=== PATIENT | male | born 1985 | race African-American/Black ===

== ENCOUNTER 2020-04-16 01:59 | Emergency (ER) | payer SELFPAY ==
--- NOTE | 2020-04-16 02:36 | ER ---
Nurse's Notes [facility] Name: Ritchie Gonzalez Age: 35 yrs Sex: Male : 1985 Arrival Date: 04/16/2020 Time: 02:03 Bed 13 Private MD: Diagnosis: Dental caries, unspecified;Cracked tooth Presentation: 04/16 02:17 Chief complaint: Patient states: TOOTHACHE STARTED OVER THE WEEKEND, MADE APPOINTMENT rv WITH THE DENTIST, BUT PAIN IS GETTING WORSE. WITH HEADACHE, NUMBNESS ON THE RIGHT SIDE OF THE FACE. DENIES FEVER. Coronavirus screen: Client denies travel out of the [place] in the last 14 days. Coronavirus screen: At this time, the client does not indicate any symptoms associated with coronavirus-19. Ebola Screen: No symptoms or risks identified at this time. Initial Sepsis Screen: Does the patient meet any 2 criteria? No. Patient's initial sepsis screen is negative. Does the patient have a suspected source of infection? No. Patient's initial sepsis screen is negative. Risk Assessment: Do you want to hurt yourself or someone else? Patient reports no desire to harm self or others. Onset of symptoms was April 15, 2020. 02:17 Method Of Arrival: Ambulatory rv 02:17 Acuity: JOYCE 3 rv Triage Assessment: 02:20 General: Appears uncomfortable, Behavior is calm, cooperative. Pain: Complains of pain rv in right jaw. EENT: Reports pain in lower right second bicuspid, lower right first molar and lower right second molar. Historical: - Allergies: 02:20 No Known Allergies; rv - Home Meds: 02:20 None [Active]; rv - PMHx: 02:20 None; rv - PSHx: 02:20 None; rv - Immunization history:: Adult Immunizations up to date. - Social history:: Smoking status: Patient reports the use of cigarette tobacco products, cigars. Screenin:33 Abuse screen: Denies threats or abuse. Nutritional screening: No deficits noted. fu Tuberculosis screening: No symptoms or risk factors identified. Fall Risk None identified. Assessment: 02:22 General: Appears in no apparent distress. Behavior is calm, cooperative, appropriate fu for age, Denies fever, feeling ill, fatigue, chills. Pain: Complains of pain in right lower jaw Pain does not radiate. Pain currently is 10 out of 10 on a pain scale. Pain began 5 days ago. Neuro: Level of Consciousness is awake, alert, obeys commands, Oriented to person, place, time, situation, Toolroom Attendant are equal bilaterally Moves all extremities. Gait is steady, Speech is normal, Facial symmetry appears normal. Cardiovascular: Denies chest pain. Respiratory: Respiratory effort is even, unlabored, Respiratory pattern is regular. GI: No signs and/or symptoms were reported involving the gastrointestinal system. Derm: mild swelling of the right side of the face. Vital Signs: 02:17 Temp 99.4(TE); Weight 92.99 kg; Height 5 ft. 8 in. (172.72 cm); rv 02:19 BP 132 / 96; Pulse 80; Resp 16; Temp 99.4(TE); Pulse Ox 98% on R/A; Pain 10/10; fu 02:43 BP 125 / 88; Pulse 70; Resp 16; Pulse Ox 99% on R/A; fu 02:17 Body Mass Index 31.17 (92.99 kg, 172.72 cm) rv ED Course: 02:03 Patient arrived in ED. cl3 02:17 Christian Mason MD is Attending Physician. tw4 02:20 Triage completed. rv 02:21 Arm band placed on right wrist. Patient placed in the treatment room, on a stretcher, rv Patient notified of wait time. 02:22 Alberto Birmingham, RN is Primary Nurse. fu 02:34 Patient has correct armband on for positive identification. Bed in low position. Call fu light in reach. Pulse ox on. NIBP on. 02:46 No provider procedures requiring assistance completed. Patient did not have IV access fu during this emergency room visit. Administered Medications: 02:33 Drug: Amoxicillin 875 mg Route: PO; fu 02:46 Follow up: Response: No adverse reaction fu 02:37 Not Given (Physician Discretion): Ibuprofen 800 mg PO once tw4 02:43 Drug: Keota 5 mg-325 mg 1 tabs Route: PO; fu 02:46 Follow up: Response: Medication administered at discharge. fu Outcome: 02:36 Discharge ordered by . tw4 02:47 Discharged to home ambulatory. fu 02:47 Condition: stable 02:47 Discharge instructions given to patient, family, Instructed on discharge instructions, follow up and referral plans. Demonstrated understanding of instructions, follow-up care, Prescriptions given X 2. 02:47 Patient left the ED. fu Signatures: Alberto Birmingham, RN Christian Garza MD MD tw4 Mark Garcia RN Kristie Ramos cl3
--- NOTE | 2020-04-16 02:36 | EDPHYS ---
Physician Documentation [facility] Name: Ritchie Gonzalez Age: 35 yrs Sex: Male : 1985 Arrival Date: 04/16/2020 Time: 02:03 Bed 13 Private MD: ED Physician Christian Mason Historical: - Allergies: 04/16 02:20 No Known Allergies; rv - Home Meds: 02:20 None [Active]; rv - PMHx: 02:20 None; rv - PSHx: 02:20 None; rv - Immunization history:: Adult Immunizations up to date. - Social history:: Smoking status: Patient reports the use of cigarette tobacco products, cigars. Vital Signs: 02:17 Temp 99.4(TE); Weight 92.99 kg; Height 5 ft. 8 in. (172.72 cm); rv 02:19 BP 132 / 96; Pulse 80; Resp 16; Temp 99.4(TE); Pulse Ox 98% on R/A; Pain 10/10; fu 02:43 BP 125 / 88; Pulse 70; Resp 16; Pulse Ox 99% on R/A; fu 02:17 Body Mass Index 31.17 (92.99 kg, 172.72 cm) rv MDM: 02:18 Patient medically screened. tw4 Administered Medications: 02:33 Drug: Amoxicillin 875 mg Route: PO; fu 02:46 Follow up: Response: No adverse reaction fu 02:37 Not Given (Physician Discretion): Ibuprofen 800 mg PO once tw4 02:43 Drug: Coy 5 mg-325 mg 1 tabs Route: PO; fu 02:46 Follow up: Response: Medication administered at discharge. fu Disposition: 04/16/20 02:36 Discharged to Home. Impression: Dental caries, unspecified, Cracked tooth. - Condition is Stable. - Prescriptions for Augmentin 875- 125 mg Oral Tablet - take 1 tablet by ORAL route every 12 hours for 10 days; 20 tablet. Tramadol 50 mg Oral Tablet - take 1 tablet by ORAL route every 8 hours as needed; 12 tablet. - Medication Reconciliation Form, Thank You Letter, Antibiotic Education, Prescription Opioid Use form. - Follow up: Private Physician; When: Upon discharge from the Emergency Department; Reason: Recheck today's complaints, Continuance of care, Re-evaluation by your physician. - Problem is new. - Symptoms have improved. Addendum: 04/27/2020 06:59 Addendum: HPI: Pt is a 35 year old male that comes to the ED with complaint of t w4 toothache. pt states that pain has been present for two days. Pt states that his jaw is becoming swollen. P t denies any difficulty swallowing or handling secretions. Denies fever, chills or neck pain. Addendum: ROS: Constitutional: negative for fevers chills, HEENT: positive for toothache, jaw swelling Neck, negative for pain ,sore throat Resp: negative for SOB cough ROMERO CV: negative for C: ROMERO, palpitations Abdomen: negative for abdominal pain, nausea, vomiting diarrhea Ext: negative for edema, injury deformtoy. Addendum: PE: General: well develop well nourished male in NAD HEENT: atraumatic, nontraumatic PERRLA , EOMI mouth poor dentition , dental caries left lower molars, no abscess, oropharynx patent and normal Neck: supple, nontender, no lymphadenopathy . Signatures: Alberto Birmingham, RN RN Christian Stahl MD MD tw4 Mark Garcia RN RN rv Corrections: (The following items were deleted from the chart) 04/16 02:47 02:36 04/16/2020 02:36 Discharged to Home. Impression: Dental caries, unspecified; fu Cracked tooth. Condition is Stable. Forms are Medication Reconciliation Form, Thank You Letter, Antibiotic Education, Prescription Opioid Use. Follow up: Private Physician; When: Upon discharge from the Emergency Department; Reason: Recheck today's complaints, Continuance of care, Re-evaluation by your physician. Problem is new. Symptoms have improved. tw4
[2020-04-16] MEDS ORDERED: IBUPROFEN 400 MG TAB ONE (02:40)
[2020-04-16] MEDS ORDERED: AMOX/K CLAV 875 MG TAB ONE (02:40)
[2020-04-16] MEDS ORDERED: HYDROCODONE/APAP 5/325 MG TAB ONE (02:53)
[2020-04-16 05:49] VITALS: TEMP 99.4
[2020-04-16 05:53] VITALS: BP 125/88; O2SAT 99
== END 2020-04-16 02:47 | disposition home or self-care (01) ==
LOC: ER 01:59
DX: K03.81 Cracked tooth (principal); F17.290 Nicotine dependence, other tobacco product, uncomplicated
CPT/HCPCS: 99283

== ENCOUNTER 2023-10-18 09:29 | Emergency (ER) | payer BC ==
--- OUTSIDE RECORDS SUMMARY | 2023-10-18 09:31 | XMS REPORT | Continuity of Care Document ---
Author Name Unknown Address [address] [facility] [place] [address] [facility] Address [address] [facility] [place] [address] Care Team Providers Care Test Lead Application Testing Name Role Phone Unavailable Unavailable Unavailable Payers Payer Name Policy Type Policy Number Effective Date Expirati on Date Source Allergies, Adverse Reactions, Alerts Allergy Name Allergy Type Status Severity Reaction(s) Onset Date Inactive Date Treating Clinician Comments Source No Known Allergie s DA Active U 09-09 00:00: 00 [facility] No Known Allergie s DA Active U 12-17 00:00: 00 [facility] Immunizations Ordered Immunization Name Filled Immunization Name Date Status Comments Source Pfizer COVID-19 Vaccine Pfizer COVID-19 Vaccine 2021-05-11 00:00:00 Completed Pfizer COVID-19 Vaccine Pfizer COVID-19 Vaccine 2020-09-25 00:00:00 Completed Pfizer COVID-19 Vaccine Pfizer COVID-19 Vaccine 2020-09-04 00:00:00 Completed Encounters Start Date/Time End Date/Time Encounter Type Admission Type Attending Clinicians Care Facility Care Department Encounter ID Source 2019-09-10 22:05:00 Inpatient [facility] [id number] [facility] 2021-05-11 00:00:00 2021-05-11 00:00:00 Outpatient [facility] [id number] [facility] 2020-09-25 00:00:00 2020-09-25 00:00:00 Outpatient [facility] [id number] [facility] 2020-09-04 00:00:00 2020-09-04 00:00:00 Outpatient [facility] [id number] [facility] Results Test Description Test Time Test Comments Results Resul t Comments Source - CT HEAD/BRAIN W/O CONT 2019-09-10 23:35:00 [place]: St: REG Name: JESSGIULIANA [facility] : 1985 Age/S: 34/M [address] [facility] Unit: [id number] Loc: [address] Phys: [place] [id number] Acct: [id number] Dis Date: Status: REG ER PHONE #: [phone] Exam Date: 09/10/2019 [facility] FAX #: [phone] Reason: AMS EXAMS: CPT CODE: [id number] CT HEAD/BRAIN W/O CONT [id number] Exam: CT of the brain without contrast. History: Altered mental status Technique: Contiguous axial CT images were obtained from the skull base through the vertex without contrast. One or more of the following dose reduction techniques were used: Automated exposure control, adjustment of the mA and/or kV according to patient size, and/or utilization of iterative reconstruction technique. Comparison: None Location: R16 Findings: The ventricles and sulci are normal in size and symmetric. The basal cisterns are patent. There is no mass effect or midline shift. There is no acute intracranial hemorrhage. There are no extra-axial fluid collections. Paranasal sinuses and mastoid air cells are clear. Impression: No CT evidence of an acute intracranial hemorrhage or significant mass effect at 2335 Reported and signed by: Cornelia Marks M.D. CC: Technologist: IGGY Thornerd Dt/Tm: 09/10/2019 (4345) [id number] Orig Print D/T: S: 09/10/2019 (1498 PAGE 1 Signed Report [id number] 23:04:00* Test Item Value Reference Range Interpretation Comme nts ALCOHOL (test code = ALC) 0.00 gm/dL 0.00-0.00 N ETHYL ALCOHOL VA LUES - INTERPRETATION: 0.050 GM/DL - NOT INTOXICATED 0.100 GM/DL - INTOXICATED 0.350-0.450 GM/DL - SEVERELY INTOXICATED 0.550 GM/DL- FATAL INTOXICATION DRUGS OF ABUSE SCREEN [id number] 22:59:00* Test Item Value Reference Range Interpretation Comments URN COCAINE (test code = COCAURN) NEGATIVE NEGATIVE Cocaine cut-off concentration: 300 ng/mL URN CANNABINOIDS (test code = CANNABURN) NEGATIVE NEGATIVE Cannabinoids cut -off concentration: 50 ng/mL URN AMPHETAMINE (test code = AMPHETURN) NEGATIVE NEGATIVE Amphetamine cut- off concentration: 1000 ng/mL URN BARBITURATE (test code = BARBITURN) NEGATIVE NEGATIVE Barbiturate cut- off concentration: 200 ng/mL URN BENZODIAZEPINE (test code = BENZOURN) POSITIVE NEGATIVE A UNCONFIRMED INIT IAL SCREENING ONLY; SUGGEST ADDITIONALCONFIRMATORY TESTING.Benzodiazepine cut-off concentration: 200 ng/mL URN OPIATES (test code = OPIATURN) NEGATIVE NEGATIVE Opiates cut-off concentration: 200 ng/mL URN PHENCYCLIDINE (PCP) (test code = PHENCURN) POSITIVE NEGATIVE A UNCONFIRMED INIT IAL SCREENING ONLY; SUGGEST ADDITIONALCONFIRMATORY TESTING.Phencyclidine(PCP) cut-off concentration: 25 ng/ml URN METHADONE (test code = METHAURN) NEGATIVE NEGATIVE Methadone cut-o ff concentration: 300 ng/mL COMPREHENSIVE METABOLIC [id number] 22:57:00* Test Item Value Reference Range Interpretation Comme nts SODIUM (test code = NA) 144 mmol/l 134.0-147.0 N POTASSIUM (test code = K) 3.8 mmol/L 3.6-5.2 N CHLORIDE (test code = CL) 107 mmol/l 98.0-107.0 N CARBON DIOXIDE (test code = CO2) 25.8 mmol/l 21.0-33.0 N ANION GAP (test code = GAP) 15.0 0-20 N GLUCOSE (test code = GLU) mg/dl 70.0-110.0 BLOOD UREA NITROGEN (test co de = BUN) mg/dl 7.0-18.0 CREATININE (test code = CREAT) mg/dL 0.60-1.30 GFR NON BLACK (test code = GFRNONBLACK) mL/min 105-110 GFR BLACK (test code = GFRBLACK) mL/min 127-133 TOTAL PROTEIN (test code = PROT) gm/dL 6.4-8.2 ALBUMIN (test code = ALB) gm/dl 3.2-4.7 CALCIUM (test code = CA) mg/dl 8.0-10.5 BILIRUBIN TOTAL (test code = BILT) mg/dl 0.0-1.0 SGOT/AST (test code = AST) Units/L 15.0-37.0 SGPT/ALT (test code = ALT) Units/L 12.0-78.0 ALKALINE PHOSPHATASE TOTAL ( test code = ALKP) Units/L 50.0-136.0 [id number] 22:57:00* Test Item Value Reference Range Interpretation Comme nts ALCOHOL (test code = ALC) gm/dL 0.00-0.00 CBC W/AUTO [id number] 22:55:00* Test Item Value Reference Range Interpretation Comme nts WHITE BLOOD CELL (test code = WBC) 21.5 K/mm3 4.5-11.0 H RED BLOOD CELL (test code = RBC) 5.26 M/mm3 4.40-5.90 N HEMOGLOBIN (test code = HGB) 15.9 gm/dL 13.0-17.0 N HEMATOCRIT (test code = HCT) 48.1 % 36.0-48.0 H MEAN CELL VOLUME (test code = MCV) 91.4 UM3 80.0-94.0 N MEAN CELL HGB (test code = MCH) 30.2 UUG 25.5-32.5 N MEAN CELL HGB CONCETRATION (test code = MCHC) 33.1 gm/dL 29.0-35.5 N RED CELL DISTRIBUTION WIDTH (test code = RDW) 14.1 % 11.5-15.0 N RED CELL DISTRIBUTION WIDTH SD (test code = RDW-SD) 47.1 fL 34.8-50.2 N PLATELET COUNT (test code = PLT) 283 K/mm3 150-400 N MEAN PLATELET VOLUME (test c ode = MPV) 9.9 fl 7.4-10.4 N NEUTROPHIL % (test code = NT%) 79.8 % 49.0-76.0 H IMMATURE GRANULOCYTE % (test code = IG%) 0.8 % 0.0-0.4 H LYMPHOCYTE % (test code = LY%) 11.4 % 23.0-38.0 L MONOCYTE % (test code = MO%) 7.2 % 1.0-10.0 N EOSINOPHIL % (test code = EO%) 0.3 % 1.0-5.0 L BASOPHIL % (test code = BA%) 0.5 % 0.0-1.0 N NEUTROPHIL # (test code = NT#) 17.2 K/mm3 2.4-6.3 H IMMATURE GRANULOCYTE # (test code = IG#) 0.17 x10 3/uL 0.00-0.07 H LYMPHOCYTE # (test code = LY#) 2.5 K/mm3 1.2-4.0 N MONOCYTE # (test code = MO#) 1.6 K/mm3 0.0-0.6 H EOSINOPHIL # (test code = EO#) 0.1 K/MM3 0.0-0.7 N BASOPHIL # (test code = BA#) 0.1 K/mm3 0.0-0.2 N
[2023-10-18] MEDS ORDERED: ONDANSETRON 4 MG/2 ML VIAL ONE (09:55)
[2023-10-18] MEDS ORDERED: NA CHLORIDE 0.9% 1,000 ML ONE (09:55)
[2023-10-18 10:23] LABS: Absolute Lymphocytes (CBC) 1.5 K/uL (0.7-4.9); Absolute Monocytes 0.8 K/uL (0.1-1.3); Absolute Neutrophil 9.2 K/uL (1.8-8.0); Basophils % 0.4 % (0-1.3); Eosinophils % 0.2 % (0-4.4); Hematocrit 48.3 % (39.6-49.0); Hemoglobin 16.3 g/dL (13.6-17.9); Lymphocytes % 13.2 % (15.3-44.8); MCH 31.8 pg (27.0-35.0); MCHC 33.8 g/dL (32.0-36.0); MCV 94.1 fL (80-100); MPV 8.1 fL (7.6-11.3); Monocytes % 7.2 % (3.3-12.3); Nucleated Red Blood Cells % 0.1 % (0-0); Platelets 252 thou/uL (152-406); RBC Red Blood Cell Count 5.14 M/uL (4.33-5.43); Red Cell Distribution Width 13.4 % (12.1-15.2)
[2023-10-18 10:24] LABS: SARS-CoV-2 Antigen CONTROL BLUE LINE VIS/BG OK; SARS-CoV-2 Antigen Rapid Res Negative (Negative)
[2023-10-18] MEDS ORDERED: MORPHINE 2 MG/ML SYR ONE (10:27)
[2023-10-18 10:30] LABS: Specific Gravity > 1.030 (1.005-1.030); Sqamous Epithelial <5 /HPF (None Seen); Urine Bacteria <20 /HPF (<20); Urine Bilirubin 1+ (Negative); Urine Blood 1+ (Negative); Urine Clarity Turbid (Clear); Urine Color Yellow (Yellow); Urine Culture Reflex Order NOT NEEDED; Urine Glucose NEGATIVE (Negative); Urine Ketones 3+ (Negative); Urine Microscopic Reflex YN ORDER UMIC; Urine Mucus 4+ /HPF (None Seen); Urine Nitrite NEGATIVE (Negative); Urine Protein 1+ (Negative); Urine Urobilinogen 2+ (Normal); Urine WBC <5 /HPF (<5)
[2023-10-18 10:34] LABS: Albumin 4.3 g/dL (3.4-5.0); Albumin/Globulin Ratio 1.1 (1.1-1.8); Anion Gap 6.8 mEq/L (5.0-15.0); Bilirubin Total 0.6 mg/dL (0.2-1.0); Globulin 3.9 g/dL (2.3-3.5); Potassium 3.8 mEq/L (3.5-5.1); Protein, Total 8.2 g/dL (6.4-8.2)
[2023-10-18] MEDS ORDERED: Ringers Lactate 1,000 ML IV ONE (11:12)
--- NOTE | 2023-10-18 11:37 | EDPHYS ---
Physician Documentation [facility] Name: Ritchie Gonzalez III Age: 38 yrs Sex: Male : 1985 Arrival Date: 10/18/2023 Time: 09:29 Bed 8 Private MD: ED Physician Lesly Parry HPI: 10/17 10:32 This 38 yrs old Black Male presents to ER via Ambulatory with complaints of Nausea, Flu sp3 Symptoms. 10:32 38-year-old male with no past medical history presents with chief complaint mild sp3 epigastric pain, vomiting, generalized fatigue and malaise. Patient also works outside a lot and states he feels like he may be dehydrated. He had some mild diarrhea as well. Unknown potential for bad food. Possible sick contacts over the weekend. He denies fever, blood or mucus in his emesis or stool, chest pain at rest, back pain, shortness of breath, cough, syncope, near syncope, rash, bleeding, change in urine output, dysuria or frequency, or any other signs or symptoms on ROS at this time.. Historical: - Allergies: 09:41 No Known Allergies; iw - Home Meds: 09:41 None [Active]; iw - PMHx: 09:41 None; iw - PSHx: 09:41 None; iw - Immunization history:: Client reports receiving the 2nd dose of the Covid vaccine. - Infectious Disease History:: Denies. - Social history:: Smoking status: Patient reports the use of cigarette tobacco products. ROS: 10:33 Constitutional: Negative for fever, chills, and weight loss, Eyes: Negative for injury, sp3 pain, redness, and discharge, ENT: Negative for injury, pain, and discharge, Neck: Negative for injury, pain, and swelling, Cardiovascular: Negative for chest pain, palpitations, and edema, Back: Negative for injury and pain, : Negative for injury, bleeding, discharge, and swelling, MS/Extremity: Negative for injury and deformity, Skin: Negative for injury, rash, and discoloration, Neuro: Negative for headache, weakness, numbness, tingling, and seizure, Psych: Negative for depression, anxiety, suicide ideation, homicidal ideation, and hallucinations, Allergy/Immunology: Negative for hives, rash, and allergies, Endocrine: Negative for neck swelling, polydipsia, polyuria, polyphagia, and marked weight changes, Hematologic/Lymphatic: Negative for swollen nodes, abnormal bleeding, and unusual bruising, 10:33 All other systems are negative, Exam: 10:33 Constitutional: This is a well developed, well nourished patient who is awake, alert, sp3 and in no acute distress. Head/Face: Normocephalic, atraumatic. Eyes: Pupils equal round and reactive to light, extra-ocular motions intact. Lids and lashes normal. Conjunctiva and sclera are non-icteric and not injected. Cornea within normal limits. Periorbital areas with no swelling, redness, or edema. Neck: Trachea midline, no thyromegaly or masses palpated, and no cervical lymphadenopathy. Supple, full range of motion without nuchal rigidity, or vertebral point tenderness. No Meningismus. Chest/axilla: Normal chest wall appearance and motion. Nontender with no deformity. No lesions are appreciated. Cardiovascular: Regular rate and rhythm with a normal S1 and S2. No gallops, murmurs, or rubs. Normal PMI, no JVD. No pulse deficits. Respiratory: Lungs have equal breath sounds bilaterally, clear to auscultation and percussion. No rales, rhonchi or wheezes noted. No increased work of breathing, no retractions or nasal flaring. Back: No spinal tenderness. No costovertebral tenderness. Full range of motion. Skin: Warm, dry with normal turgor. Normal color with no rashes, no lesions, and no evidence of cellulitis. MS/ Extremity: Pulses equal, no cyanosis. Neurovascular intact. Full, normal range of motion. Neuro: Awake and alert, GCS 15, oriented to person, place, time, and situation. Cranial nerves II-XII grossly intact. Motor strength 5/5 in all extremities. Sensory grossly intact. Cerebellar exam normal. Normal gait. Psych: Awake, alert, with orientation to person, place and time. Behavior, mood, and affect are within normal limits. 10:33 Abdomen/GI: Very mild epigastric tenderness and actual pain on the xiphoid process. No peritoneal signs, rebound or guarding. No right upper quadrant pain, no right lower quadrant pain. Vital signs are normal patient is in no acute distress., Vital Signs: 09:39 BP 139 / 103; Pulse 81; Resp 16; Temp 97.5; Pulse Ox 100% on R/A; Weight 88.45 kg; iw Height 5 ft. 8 in. ; Pain 7/10; 10:07 BP 135 / 85; Pulse 65; Resp 18; Pulse Ox 98% on R/A; ld1 12:25 BP 132 / 82; Pulse 68; Resp 16; Pulse Ox 100% on R/A; mb9 09:39 Body Mass Index 29.65 (88.45 kg, 172.72 cm) iw 09:39 Pain Scale: Adult iw MDM: 09:43 Patient medically screened. sp3 10:33 Data reviewed: vital signs, nurses notes, lab test result(s). ED course: 38-year-old sp3 male with vague symptoms and vomiting and mild diarrhea. Differential diagnosis includes viral illness, influenza, COVID-19, dehydration, heat related illness, posterior pathology including pancreatitis, among others. Workup will include laboratory values and generalized supportive including normal saline and pain/nausea medication as needed. Disposition probable discharge after p.o. challenge and ruling out of any critical illness.. 11:36 ED course: Creatinine at 1.3 and 3+ ketones in urine. Patient is dehydrated. We will sp3 add second bag of IV fluids of lactated Ringer's. Discharge after that is complete.. 10/17 09:42 Order name: CBC with Diff; Complete Time: 11:08 3 10/17 09:42 Order name: CMP; Complete Time: 11:08 [facility] 10/17 09:42 Order name: Lipase; Complete Time: 11:08 [facility] 10/17 09:42 Order name: Urinalysis w/ reflexes; Complete Time: 11:08 3 10/17 09:42 Order name: Flu; Complete Time: 11:08 10/17 09:42 Order name: SARS RAPID; Complete Time: 11:08 [facility] 10/17 09:42 Order name: IV Saline Lock; Complete Time: 10:07 [facility] 10/17 09:42 Order name: Labs collected and sent; Complete Time: 10:07 sp3 Administered Medications: 10:07 Drug: NS 0.9% IV 1000 ml IV at 1 bolus Per protocol; 1000 mL bolus Route: IV; Rate: 1 ld1 bolus; Site: right antecubital; 10:07 Drug: Ondansetron IVP 4 mg IVP once; over 2 minutes Route: IVP; Site: right antecubital;ld1 10:30 Drug: morphine IVP or IV 2 mg IVP once over 4 mins Route: IVP; Infused Over: 4 mins; mb9 Site: right antecubital; 11:14 Drug: Lactated Ringers Solution IV 1000 ml IV at 1000 per protocol bolus Route: IV; mb9 Rate: 1000 per protocol; Site: right antecubital; Disposition Summary: 10/18/23 11:37 Discharge Ordered Notes: Location: Home sp3 Condition: Stable sp3 Diagnosis - Dehydration, vomiting sp3 Followup: sp3 - With: Private Physician - When: Upon discharge from the Emergency Department - Reason: Continuance of care Discharge Instructions: - Discharge Summary Sheet sp3 - Dehydration, Adult sp3 Forms: - Medication Reconciliation Form sp3 - Antibiotic Education sp3 - Prescription Opioid Use sp3 - Patient Portal Instructions sp3 - Leadership Thank You Letter sp3 - Work release form bc6 Prescriptions: - ondansetron 8 mg Oral Tablet,disintegrating - take 1 tablet ORAL route every 12 hours; 20 tablet; Refills: 0, Product sp3 Selection Permitted Signatures: Dispatcher [employer] Grecia Atkinson RN RN iw Lucita De La Garza RN RN ld1 Lesly Parry MD MD sp3 Tere Morse RN RN mb9 Corrections: (The following items were deleted from the chart) 09:43 09:43 CBC+H.LAB.BRZ ordered. EDMS EDMS 09:43 09:43 COMPREHENSIVE METABOLIC PANEL+C.LAB.BRZ ordered. EDMS EDMS 09:43 09:43 LIPASE+C.LAB.BRZ ordered. EDMS EDMS 09:43 09:43 Urinalysis+U.LAB.BRZ ordered. EDMS EDMS 09:43 09:43 Influenza Screen (A \T\ B)+BA.LAB.BRZ ordered. EDMS EDMS 09:43 09:43 SARS-COV-2 Antigen Rapid+I.LAB.BRZ ordered. EDMS EDMS
--- NOTE | 2023-10-18 11:37 | ER ---
Nurse's Notes [facility] Name: Ritchie Gonzalez III Age: 38 yrs Sex: Male : 1985 Arrival Date: 10/18/2023 Time: : Bed 8 Private MD: Diagnosis: Dehydration, vomiting Presentation: 10/17 09:39 Chief complaint: Patient states: has been nauseous and vomiting since yesterday , feels iw a knot in epigastric area, yesterday at work I felt overheated and then he got really cold due to the weather change , cannot keep fluids down , also having diarrhea. Coronavirus screen: At this time, the client does not indicate any symptoms associated with coronavirus-19. Ebola Screen: Patient negative for fever greater than or equal to 101.5 degrees Fahrenheit, and additional compatible Ebola Virus Disease symptoms Patient denies exposure to infectious person. Patient denies travel to an Ebola-affected area in the 21 days before illness onset. No symptoms or risks identified at this time. Initial Sepsis Screen: Does the patient meet any 2 criteria? No. Patient's initial sepsis screen is negative. Does the patient have a suspected source of infection? No. Patient's initial sepsis screen is negative. Risk Assessment: Do you want to hurt yourself or someone else?. Onset of symptoms was October 17, 2023. 09:39 Method Of Arrival: Ambulatory iw 09:39 Acuity: JOYCE 3 iw Historical: - Allergies: 09:41 No Known Allergies; iw - Home Meds: 09:41 None [Active]; iw - PMHx: 09:41 None; iw - PSHx: 09:41 None; iw - Immunization history:: Client reports receiving the 2nd dose of the Covid vaccine. - Infectious Disease History:: Denies. - Social history:: Smoking status: Patient reports the use of cigarette tobacco products. Screenin:07 [facility] ED Fall Risk Assessment (Adult) History of falling in the last 3 months, ld1 including since admission No falls in past 3 months (0 pts). Abuse screen: Denies threats or abuse. Denies injuries from another. Nutritional screening: No deficits noted. Nutritional screening: No deficits noted. Tuberculosis screening: No symptoms or risk factors identified. Assessment: 10:07 General: Appears in no apparent distress. comfortable, Behavior is calm, cooperative, ld1 appropriate for age. Pain: Denies pain. Neuro: Level of Consciousness is awake, alert, obeys commands, Oriented to person, place, time, situation. Cardiovascular: Capillary refill < 3 seconds Patient's skin is warm and dry. Rhythm is sinus rhythm. Respiratory: Airway is patent Respiratory effort is even, unlabored. GI: Abdomen is flat, non-distended, Reports nausea. : No signs and/or symptoms were reported regarding the genitourinary system. EENT: No signs and/or symptoms were reported regarding the EENT system. Derm: No signs and/or symptoms reported regarding the dermatologic system. Musculoskeletal: No signs and/or symptoms reported regarding the musculoskeletal system. 11:38 Reassessment: Discharge pending completion of IV fluids. mb9 12:24 Reassessment: No changes from previously documented assessment. Patient and/or family mb9 updated on plan of care and expected duration. Pain level reassessed. Patient is alert, oriented x 3, equal unlabored respirations, skin warm/dry/pink. Vital Signs: 09:39 BP 139 / 103; Pulse 81; Resp 16; Temp 97.5; Pulse Ox 100% on R/A; Weight 88.45 kg; iw Height 5 ft. 8 in. ; Pain 7/10; 10:07 BP 135 / 85; Pulse 65; Resp 18; Pulse Ox 98% on R/A; ld1 12:25 BP 132 / 82; Pulse 68; Resp 16; Pulse Ox 100% on R/A; mb9 09:39 Body Mass Index 29.65 (88.45 kg, 172.72 cm) iw 09:39 Pain Scale: Adult iw ED Course: 09:31 Patient arrived in ED. im 09:35 Lesly Parry MD is Attending Physician. sp3 09:41 Triage completed. iw 09:42 Arm band placed on. iw 09:47 Lucita De La Garza, LUCIO is Primary Nurse. ld1 10:07 Patient has correct armband on for positive identification. Placed in gown. Bed in low ld1 position. Call light in reach. Side rails up X2. monitoring analyst on. Pulse ox on. NIBP on. Door closed. Noise minimized. Warm blanket given. 10:07 SARS RAPID Sent. ld1 10:07 Flu Sent. ld1 10:07 Urinalysis w/ reflexes Sent. ld1 10:07 Inserted saline lock: 20 gauge in right antecubital area, using aseptic technique. ld1 Blood collected. 12:25 No provider procedures requiring assistance completed. IV discontinued, intact, mb9 bleeding controlled, No redness/swelling at site. Pressure dressing applied. Administered Medications: 10:07 Drug: NS 0.9% IV 1000 ml IV at 1 bolus Per protocol; 1000 mL bolus Route: IV; Rate: 1 ld1 bolus; Site: right antecubital; 10:07 Drug: Ondansetron IVP 4 mg IVP once; over 2 minutes Route: IVP; Site: right antecubital;ld1 10:30 Drug: morphine IVP or IV 2 mg IVP once over 4 mins Route: IVP; Infused Over: 4 mins; mb9 Site: right antecubital; 11:14 Drug: Lactated Ringers Solution IV 1000 ml IV at 1000 per protocol bolus Route: IV; mb9 Rate: 1000 per protocol; Site: right antecubital; Medication: 10:07 VIS not applicable for this client. ld1 Outcome: 11:37 Discharge ordered by . keith 12:25 Discharged to home ambulatory, with family, mb9 12:25 Condition: stable 12:25 Discharge instructions given to patient, Instructed on discharge instructions, follow up and referral plans. Demonstrated understanding of instructions, follow-up care, medications, Prescriptions given X 1, 12:26 Patient left the ED. mb9 Signatures: Grecia Pollock RN RN iw Lucita De La Garza RN RN ld1 Lesly Parry MD MD sp3 Tere Morse RN RN mb9 Amy Bartholomew Corrections: (The following items were deleted from the chart) 09:42 09:39 BP 139 / 103; Pulse 81bpm; Resp 16bpm; Pulse Ox 100% RA; Temp 97.5F; Pain 11/28, iw Adult; iw
[2023-10-18 12:51] VITALS: BP 132/82; TEMP 97.5; O2SAT 100
== END 2023-10-18 12:26 | disposition home or self-care (01) ==
LOC: ER 09:29
DX: E86.0 Dehydration (principal); Z11.52 Encounter for screening for COVID-19; Z72.0 Tobacco use
CPT/HCPCS: 85025; 81001; 36415; 83690; 80053; 87804 ×2; 96375; 96374; 99285; 87811; J2270; J2405; J7120; J7030

== ENCOUNTER 2023-11-07 14:52 | Emergency (ER) | payer BC ==
--- OUTSIDE RECORDS SUMMARY | 2023-11-07 15:53 | XMS REPORT | Continuity of Care Document ---
Author Name Unknown Address [address] [place] [address] [facility] Address [address] [place] [address] Care Team Providers Care Pitch Filler Name Role Phone Unavailable Unavailable Unavailable Payers Payer Name Policy Type Policy Number Effective Date Expirati on Date Source Allergies, Adverse Reactions, Alerts Allergy Name Allergy Type Status Severity Reaction(s) Onset Date Inactive Date Treating Clinician Comments Source No Known Allergie s DA Active U 09-09 00:00: 00 [facility] [place] No Known Allergie s DA Active U 12-17 00:00: 00 [facility] [place] Immunizations Ordered Immunization Name Filled Immunization Name Date Status Comments Source Pfizer COVID-19 Vaccine Pfizer COVID-19 Vaccine 2021-05-11 00:00:00 Completed Pfizer COVID-19 Vaccine Pfizer COVID-19 Vaccine 2020-09-25 00:00:00 Completed Pfizer COVID-19 Vaccine Pfizer COVID-19 Vaccine 2020-09-04 00:00:00 Completed Encounters Start Date/Time End Date/Time Encounter Type Admission Type Attending Clinicians Care Facility Care Department Encounter ID Source 2019-09-10 22:05:00 Inpatient [facility] [id number] [facility] [place] 2021-05-11 00:00:00 2021-05-11 00:00:00 Outpatient [facility] [id number] [facility] 2020-09-25 00:00:00 2020-09-25 00:00:00 Outpatient [facility] [id number] [facility] 2020-09-04 00:00:00 2020-09-04 00:00:00 Outpatient [facility] [id number] [facility] Results Test Description Test Time Test Comments Results Resul t Comments Source - CT HEAD/BRAIN W/O CONT 2019-09-10 23:35:00 [place]: St: REG Name: GIULIANA MERCADO III [facility] : 1985 Age/S: 34/M [address] [facility] Unit: [id number] Loc: [address] Phys: [place] [id number] Acct: [id number] Dis Date: Status: REG ER PHONE #: [phone] Exam Date: 09/10/2019 [facility] FAX #: [phone] Reason: AMS EXAMS: CPT CODE: [id number] CT HEAD/BRAIN W/O CONT [id number] Exam: CT of the brain without contrast. [...] by: Cornelia Marks M.D. CC: Technologist: IGGY Andrew Dt/Tm: 09/10/2019 ([id number]) [id number] Orig Print D/T: S: 09/10/2019 (3758 PAGE 1 Signed Report [id number] 23:04:00* Test Item Value Reference Range Interpretation Comme nts ALCOHOL (test code = ALC) 0.00 gm/dL 0.00-0.00 N ETHYL ALCOHOL VA LUES - INTERPRETATION: 0.050 GM/DL - NOT INTOXICATED 0.100 GM/DL - INTOXICATED 0.350-0.450 GM/DL - SEVERELY INTOXICATED 0.550 GM/DL- FATAL INTOXICATION DRUGS OF ABUSE SCREEN [id number] 22:59:00* Test Item Value Reference Range Interpretation [...] cut-o ff concentration: 300 ng/mL COMPREHENSIVE METABOLIC [id number] 22:57:00* Test Item Value Reference Range Interpretation [...] ( test code = ALKP) Units/L 50.0-136.0 [id number] 22:57:00* Test Item Value Reference Range Interpretation Comme nts ALCOHOL (test code = ALC) gm/dL 0.00-0.00 CBC W/AUTO [id number] 22:55:00* Test Item Value Reference Range Interpretation [...]
[2023-11-07 16:21] VITALS: TEMP 97.9; O2SAT 99
--- NOTE | 2023-11-07 18:11 | EDPHYS ---
Physician Documentation [facility] Name: Ritchie Gonzalez III Age: 38 yrs Sex: Male : 1985 Arrival Date: 11/07/2023 Time: 14:52 Bed 10 Private MD: ED Physician Fernando Barros HPI: 11/06 17:04 This 38 yrs old Black Male presents to ER via Ambulatory with complaints of Finger kb laceration. 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 . Historical: - Allergies: 14:58 No Known Allergies; ll1 - PMHx: 14:58 None; ll1 - PSHx: 14:58 None; ll1 - Immunization history:: Adult Immunizations up to date. - Infectious Disease History:: Denies. - Social history:: Smoking status: Patient reports the use of cigarette tobacco products, denies chronic smoking, but will smoke occasionally, cigars. ROS: 17:04 Constitutional: As per HPI kb Exam: 17:04 Constitutional: This is a well developed, well nourished patient who is awake, alert, kb and in no acute distress. Head/Face: Normocephalic, atraumatic. ENT: Moist Mucous membranes Cardiovascular: Regular rate Respiratory: Respirations even and unlabored. No increased work of breathing. Talking in full sentences MS/ Extremity: Pulses equal, no cyanosis. Neurovascular intact. Full, normal range of motion. Neuro: Awake and alert, GCS 15, oriented to person, place, time, and situation. Moves all extremities. Normal gait. 17:04 Skin: injury, laceration(s), the wound is approximately 1.5 cm(s), of the palmar aspect of distal phalanx of left index finger, that can be described as clean, no foreign body, linear, without bleeding, Vital Signs: 14:58 Pulse 86; Resp 16; Temp 97.9; Pulse Ox 99% ; Weight 89.81 kg; Height 5 ft. 8 in. ; Pain ll1 7/10; 14:58 Body Mass Index 30.11 (89.81 kg, 172.72 cm) ll1 14:58 Pain Scale: Adult ll1 MDM: 14:55 Patient medically screened. kb 17:06 Differential diagnosis: superficial laceration, tendon injury, vascular injury. Data kb reviewed: vital signs, nurses notes. Test considered but Not performed: X-ray: x-ray hand considered but laceration is superficial, full rom of finger. Counseling: I had a detailed discussion with the patient and/or guardian regarding the historical points, exam findings, and any diagnostic results supporting the discharge/admit diagnosis, the need for outpatient follow up, a family practitioner, to return to the emergency department if symptoms worsen or persist or if there are any questions or concerns that arise at home. ED course: Discussed sutures with pt upon initial examination and pt was in agreement. I entered the room to perform laceration repair and pt stated he did not want sutures. States he thought I was talking about the little strips that go across to hold it together. Discussed dermabond and steristrips and pt in agreement. Nurse went in with steristrips and dermabond and pt requested neosporin and a bandaid instead. . 11/06 15:04 Order name: Dressing - Wound; Complete Time: 15:19 kb 11/06 15:04 Order name: Gloves, Sterile; Complete Time: 15:19 kb 11/06 15:04 Order name: Prolene, Sutures; Complete Time: 15:19 kb 11/06 15:04 Order name: Setup Suture Tray; Complete Time: 15:19 kb Administered Medications: 15:19 Drug: Boostrix Tdap IM 0.5 ml IM once; as a single dose Route: IM; Site: right deltoid; as6 15:34 Follow up: Response: (VIS) Vaccine information sheet provided today. Questions and/or as6 concerns addressed. VIS edition date: Dec 25, 2020.; No adverse reaction 15:34 Not Given (Patient Refused): lidocaine(1 %) 1 vials 5 ml Infiltration once; to bedside as6 Disposition Summary: 11/07/23 15:31 Discharge Ordered Notes: Location: Home Condition: Stable kb Diagnosis - Laceration without foreign body of left index finger without damage to nail kb Followup: kb - With: Emergency Department - When: As needed - Reason: Worsening of condition Followup: kb - With: Private Physician - When: 2 - 3 days - Reason: Recheck today's complaints, Continuance of care, Re-evaluation by your physician Discharge Instructions: - Discharge Summary Sheet kb - Laceration Care, Adult, [id number] kb Forms: - Medication Reconciliation Form kb - Antibiotic Education kb - Prescription Opioid Use kb - Patient Portal Instructions kb - Leadership Thank You Letter kb Signatures: Antonia Shelby FNP-C FNP-Marky Roca, RN RN ll1 Yuriy Sandoval RN RN as6 Corrections: (The following items were deleted from the chart) 15:34 15:29 Dermabond ordered. kb as6
--- NOTE | 2023-11-07 18:11 | ER ---
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 ll1 Bleeding controlled. Coronavirus screen: Client denies travel out of the [place] in the last 14 days. At this time, the client does not indicate any symptoms associated with coronavirus-19. Ebola Screen: Patient denies travel to an Ebola-affected area in the 21 days before illness onset. Initial Sepsis Screen: Does the patient meet any 2 criteria? No. Patient's initial sepsis screen is negative. Does the patient have a suspected source of infection? No. Patient's initial sepsis screen is negative. Risk Assessment: Do you want to hurt yourself or someone else? Patient reports no desire to harm self or others. Onset of symptoms was November 07, 2023. 14:58 Method Of Arrival: Ambulatory ll1 14:58 Acuity: JOYCE 4 ll1 Triage Assessment: 14:59 General: Appears uncomfortable, Behavior is calm, cooperative, appropriate for age. ll1 Pain: Complains of pain in left hand Pain currently is 7 out of 10 on a pain scale. Quality of pain is described as aching. Derm: Reports laceration L hand 2nd digit. Historical: - Allergies: 14:58 No Known Allergies; ll1 - PMHx: 14:58 None; ll1 - PSHx: 14:58 None; ll1 - Immunization history:: Adult Immunizations up to date. - Infectious Disease History:: Denies. - Social history:: Smoking status: Patient reports the use of cigarette tobacco products, denies chronic smoking, but will smoke occasionally, cigars. Screenin:35 [facility] ED Fall Risk Assessment (Adult) History of falling in the last 3 months, as6 including since admission No falls in past 3 months (0 pts) Confusion or Disorientation No (0 pts) Intoxicated or Sedated No (0 pts) Impaired Gait No (0 pts) Mobility Assist Device Used No (0 pt) Altered Elimination No (0 pt) Score/Fall Risk Level 0 - 2 = Low Risk Oriented to surroundings, Maintained a safe environment, Educated pt \T\ family on fall prevention, incl call for assistance when getting out of bed, Assessed \T\ reinforced patient's understanding of fall precautions. Abuse screen: Denies threats or abuse. Denies injuries from another. Nutritional screening: No deficits noted. Tuberculosis screening: No symptoms or risk factors identified. Assessment: 15:35 General: pt refused sutures and Dermabond. pt requesting band aid and Neosporin . as6 Vital Signs: 14:58 Pulse 86; Resp 16; Temp 97.9; Pulse Ox 99% ; Weight 89.81 kg; Height 5 ft. 8 in. ; Pain ll1 7/10; 14:58 Body Mass Index 30.11 (89.81 kg, 172.72 cm) ll1 14:58 Pain Scale: Adult ll1 ED Course: 14:54 Patient arrived in ED. mr 14:54 Yuriy Sandoval, RN is Primary Nurse. as6 14:54 Arm band placed on Patient placed in an exam room, on a stretcher. ll1 14:55 Antonia Shelby FNP-C is PHCP. kb 14:55 Fernando Barros MD is Attending Physician. kb 14:59 Triage completed. ll1 15:35 Bed in low position. Call light in reach. Provided Education on: wound care. as6 15:35 No provider procedures requiring assistance completed. Patient did not have IV access as6 during this emergency room visit. Wound care: to laceration located on palmar aspect of distal phalanx of left index finger was cleaned with soap and water, dressed with Neosporin, band aid, Patient tolerated well. Administered Medications: 15:19 Drug: Boostrix Tdap IM 0.5 ml IM once; as a single dose Route: IM; Site: right deltoid; as6 15:34 Follow up: Response: (VIS) Vaccine information sheet provided today. Questions and/or as6 concerns addressed. VIS edition date: Dec 25, 2020.; No adverse reaction 15:34 Not Given (Patient Refused): lidocaine(1 %) 1 vials 5 ml Infiltration once; to bedside as6 Medication: 15:37 Vaccine Information Statement (VIS) provided today. Questions and/or concerns as6 addressed. VIS edition date: December 25, 2020. Outcome: 15:31 Discharge ordered by MD. stewart 15:35 Discharged to home ambulatory, as6 15:35 Condition: stable 15:35 Discharge instructions given to patient, Instructed on discharge instructions, follow up and referral plans. wound care, Demonstrated understanding of instructions, follow-up care, wound care, 15:37 Patient left the ED. as6 Signatures: Antonia Shelby, PROTOHISTORIAN-C PROTOHISTORIAN-Tere Love, Jesús Reg mr Marky Green, RN RN ll1 Yuriy Sandoval RN RN as6
== END 2023-11-07 15:37 | disposition home or self-care (01) ==
LOC: ER 14:52
DX: S61.211A Laceration without foreign body of left index finger without damage to nail, initial encounter (principal)